=== PATIENT | male | born 1990 | race Two or more races ===

== ENCOUNTER 2024-07-01 09:08 | Emergency (ER) | payer OTHER ==
[~2024-07-01] VITALS: Ht 175.3 cm; Wt 100.7 kg
[2024-07-01] MEDS: cloNIDine HCL 0.1 MG TAB PO ONE (10:12)
--- NOTE | 2024-07-01 10:17 | ED.PDOC ---
Eye-HPI Chief Complaint: Sore Throat Time Seen by MD: 09:24 Reviewed Notes: Nurses Notes, Medications, Allergies Allergies: Coded Allergies: NO KNOWN ALLERGIES (Unverified , 07/01/24) Information Source: Patient Mode of Arrival: Ambulatory X-Ray, Labs, Meds, VS Vital Signs Date Time Temp Pulse Resp B/P (MAP) Pulse Ox O2 Delivery O2 Flow Rate FiO2 07/01/24 11:27 20 Room Air* 0 21 07/01/24 11:27 100.1 98 14 139/95 (110) 98 100.1 07/01/24 11:26 139/95 07/01/24 10:13 91 20 100 Room Air 07/01/24 10:13 98.0 91 20 160/106 (124) 100 98.0 07/01/24 10:12 160/106 07/01/24 09:25 98.5 116 16 183/102 (129) 99 Current Medications Medications (Trade) Dose Ordered Sig/Isabela Route Start Time Stop Time Status Last Admin Clonidine HCl (Catapres Tablet) 0.1 mg ONCE ONCE PO 07/01/24 09:30 07/01/24 09:31 DC 07/01/24 10:12 Ceftriaxone Sodium 50 ml @ 100 mls/hr ONCE ONCE IV 07/01/24 11:15 07/01/24 11:44 DC 07/01/24 11:23 Sodium Chloride 500 ml @ 500 mls/hr Q1H ONCE IV 07/01/24 11:15 07/01/24 12:14 07/01/24 11:22 SINCERE SANTANA NP Jul 01, 2024 10:17
[2024-07-01] MEDS: SODIUM CHLORIDE 0.9% 500 ML IV ONE (11:22)
[2024-07-01] MEDS: cefTRIAXone 1GM/50ML D5W 50 ML IV ONE (11:23)
[2024-07-01 11:27] VITALS: RESP 20
--- NOTE | 2024-07-01 11:57 | ED.PDOC ---
History of Present Illness HPI Comments 34 y/o M, with a Hx of obesity and EtOH and marijuana use, presents with c/o throat swelling and pain, with associated shortness of breath, for the past 6 days, today. Patient endorses on symptoms worsening sine initial, unprovoked onset. He denies having any additional relevant or pertinent Hx and other ass ociated symptoms, such as fever, chills, or congestion. Chief Complaint: Sore Throat Time Seen by MD: 10:45 Reviewed Notes: Nurses Notes, Medications, Allergies Allergies: Coded Allergies: NO KNOWN ALLERGIES (Unverified , 07/01/24) Home Meds Active Scripts Methylprednisolone (Medrol Dosepak) 4 Mg Jay, 4 MG PO UD, #21 TAB UAD Prov:SARIKA VILLA MD 07/01/24 Cephalexin (KEFLEX CAPSULE) 250 Mg Cp, 1 CAP PO QID, #40 CAP Prov:SARIKA VILLA MD 07/01/24 Information Source: Patient Mode of Arrival: Ambulatory Severity: Moderate Timing: Days Duration: Since onset Prehospital treatment: None Past Medical History Past Medical History (Other): obesity Surgical History: Denies all surgeries Family History Family History: Unknown Social History Smoker: Non-Smoker Alcohol: Denies ETOH Use Drugs: Denies Drug Use Lives In: Home Constitutional: reports: sweats EENTM: reports: throat pain, throat swelling; denies: blurred vision, double vision, ear bleeding, ear discharge, ear drainage, ear pain, ear ringing, eye pain, eye redness, hearing loss, mouth pain, mouth swelling, nasal discharge, nose bleeding, nose congestion, nose pain, photophobia, tearing, voice changes, others Respiratory: denies: cough, hemoptysis, orthopnea, SOB at rest, shortness of breath, SOB with excertion, stridor, wheezing, others Cardiovascular: denies: chest pain, dizzy spells, diaphoresis, Dyspnea on exertion, edema, irregular heart beat, left arm pain, lightheadedness, palpitations, PND, syncope, others Gastrointestinal: denies: abdomen distended, abdominal pain, blood streaked bowels, constipated, diarrhea, dysphagia, difficulty swallowing, hematemesis, melena, nausea, poor appetite, poor fluid intake, rectal bleeding, rectal pain, vomiting, others Genitourinary: denies: burning, dysuria, flank pain, frequency, hematuria, incontinence, penile discharge, penile sore, pain, testicle pain, testicle swelling, urgency, others Neurological: denies: dizziness, fainting, headache, left sided numbness, left sided weakness, numbness, paresthesia, pre-existing deficit, right sided numbness, right sided weakness, seizure, speech problems, tingling, tremors, weakness, others Musculoskeletal: denies: back pain, gout, joint pain, joint swelling, muscle pain, muscle stiffness, neck pain, others Integumetry: denies: bruises, change in color, change in hair/nails, dryness, laceration, lesions, lumps, rash, wounds, others Allergic/Immunocompromised: denies: Difficulty Healing, Frequent Infections, Hives, Itching, others Hematologic/Lymphatic: denies: anemia, blood clots, easy bleeding, easy bruising, swollen glands, others Endocrine: denies: excessive hunger, excessive sweating, excessive thirst, excessive urination, flushing, intolerance to cold, intolerance to heat, unexplained weight gain, unexplained weight loss, others Psychiatric: denies: anxiety, bipolar disorder, depression, hopeless, panic disorder, schizophrenia, sleepless, suicidal, others Physical Exam General Appearance: No Apparent Distress HEENT: Normal ENT Inspection, Pharyngeal Erythema, TMs Normal, Tonsillar Exudate Neck: Full Range of Motion, Non-Tender, Normal, Normal Inspection Respiratory: Chest Non-Tender, Lungs Clear, No Accessory Muscle Use, No Respiratory Distress, Normal Breath Sounds Cardiovascular: No Edema, No JVD, No Murmur, No Gallop, Normal Peripheral Pulses, Regular Rate/Rhythm Breast Exam: Deferred Gastrointestinal: No Organomegaly, Non Tender, No Pulsatile Mass, Normal Bowel Sounds, Soft Genitalia: Deferred Pelvic: Deferred Rectal: Deferred Extremities: No calf tenderness, Normal capillary refill, Normal inspection, Normal range of motion, Non-tender, No pedal edema Musculoskeletal : Apperance: Normal Neurologic: Alert, engineer soils II-XII nml as Tested, No Motor Deficits, Normal Affect, Normal Mood, No Sensory Deficits Cerebellar Function: Normal Reflexes: Normal Skin: Dry, Normal Color, Warm Lymphatic: No Adenopathy Was a procedure done? Was a procedure done?: No Differential Dx Considerations may include: viral syndrome, pharyngitis, tonsillitis, strep throat X-Ray, Labs, Meds, VS Vital Signs Date Time Temp Pulse Resp B/P (MAP) Pulse Ox O2 Delivery O2 Flow Rate FiO2 07/01/24 14:42 98.7 100 16 164/97 (119) 97 98.7 07/01/24 11:27 20 Room Air* 0 21 07/01/24 11:27 100.1 98 14 139/95 (110) 98 100.1 07/01/24 11:26 139/95 07/01/24 10:13 91 20 100 Room Air 07/01/24 10:13 98.0 91 20 160/106 (124) 100 98.0 07/01/24 10:12 160/106 07/01/24 09:25 98.5 116 16 183/102 (129) 99 Lab Test 07/01/24 11:56 Range/Units White Blood Count 21.9 H 4.4-10.8 10^3/uL Red Blood Count 4.86 4.5-5.90 10^6/uL Hemoglobin 15.3 13.5-17.5 g/dL Hematocrit 44.4 41.0-53.0 % Mean Corpuscular Volume 91.4 80.0-100.0 fL Mean Corpuscular Hemoglobin 31.4 28.0-32.0 pg Mean Corpuscular Hemoglobin Concent 34.4 32.0-36.0 g/dL Red Cell Distribution Width 12.6 11.8-14.3 % Platelet Count 298 140-450 10^3/uL Mean Platelet Volume 8.1 6.9-10.8 fL Neutrophils (%) (Auto) 84.0 H 37.0-80.0 % Lymphocytes (%) (Auto) 7.3 L 10.0-50.0 % Monocytes (%) (Auto) 8.5 0.0-12.0 % Eosinophils (%) (Auto) 0.1 0.0-7.0 % Basophils (%) (Auto) 0.1 0.0-2.0 % Neutrophils # (Auto) 18.4 H 1.6-8.6 10 ^3/uL Lymphocytes # (Auto) 1.6 0.4-5.4 10 ^3/uL Monocytes # (Auto) 1.9 H 0-1.3 10 ^3/uL Eosinophils # (Auto) 0 0-0.8 10 ^3/uL Basophils # (Auto) 0 0-0.2 10 ^3/uL Nucleated Red Blood Cells 0.0 % Sodium Level 140 136-145 mmol/L Potassium Level 3.4 L 3.5-5.1 mmol/L Chloride Level 105 98-107 mmol/L Carbon Dioxide Level 26 20-31 mmol/L Anion Gap 9 5-15 Blood Urea Nitrogen 14 9-23 mg/dL Creatinine 0.98 0.700-1.30 mg/dL Glomerular Filtration Rate Calc 104 >90 mL/min BUN/Creatinine Ratio 14.3 10.0-20.0 Serum Glucose 112 H 74-106 mg/dL Calcium Level 9.9 8.7-10.4 mg/dL Current Medications Medications (Trade) Dose Ordered Sig/Isabela Route Start Time Stop Time Status Last Admin Clonidine HCl (Catapres Tablet) 0.1 mg ONCE ONCE PO 07/01/24 09:30 07/01/24 09:31 DC 07/01/24 10:12 Ceftriaxone Sodium 50 ml @ 100 mls/hr ONCE ONCE IV 07/01/24 11:15 07/01/24 11:44 DC 07/01/24 11:23 Sodium Chloride 500 ml @ 500 mls/hr Q1H ONCE IV 07/01/24 11:15 07/01/24 12:14 DC 07/01/24 11:22 The patient's CBC shows an elevated white blood cell count of 21.9 The rest of the CBC is within normal limits The patient was given clonidine 0.1 mg by mouth for the elevated blood pressure The patient was given Rocephin 1 g IV push The patient was also given normal saline as a bolus At this time, the patient was being discharged on Keflex and will return to the emergency department's the condition worsens We have discussed the findings with the patient and they understand the management. Time of 1ST Reevaluation: 11:15 Reevaluation 1ST: Unchanged Patient Education/Counseling: Diagnosis, Treatment, Prognosis, Need For Follow Up Family Education/Counseling: No Family Present Departure 1 Departure Time of Disposition: 14:55 Impression: Primary Impression: Acute tonsillitis Qualified Codes: J03.90 - Acute tonsillitis, unspecified Disposition: 01 HOME / SELF CARE / HOMELESS Condition: Fair e-Prescriptions Methylprednisolone (Medrol Dosepak) 4 Mg Jay 4 MG PO UD, #21 TAB UAD Prov: SARIKA VILLA MD 07/01/24 Cephalexin (KEFLEX CAPSULE) 250 Mg Cp 1 CAP PO QID, #40 CAP Prov: SARIKA VILLA MD 07/01/24 Discharged With: Self Critical Care Note Critical Care Time?: No Stability Stability form required: No Heart Score Heart Score: Heart Score Response (Comments) Value History N/A 0 EKG N/A 0 Age N/A 0 Risk Factors N/A 0 Troponin N/A 0 Total 0 I personally scribed for SARIKA VILLA MD ([email or web address]) on 07/01/24 at 11:57. Electronically submitted by Jonathan Fonseca ([email or web address]). SARIKA VILLA MD Jul 01, 2024 11:57
[2024-07-01 12:33] LABS: Chloride 105 mmol/L (98-107); Sodium 140 mmol/L (136-145)
[2024-07-01 12:34] LABS: Anion Gap 9 (5-15); Calcium 9.9 mg/dL (8.7-10.4); Carbon Dioxide 26 mmol/L (20-31)
[2024-07-01 12:39] LABS: BUN/Creatinine Ratio 14.3 (10.0-20.0); Blood Urea Nitrogen 14 mg/dL (9-23); Glucose 112 mg/dL (74-106); Potassium 3.4 mmol/L (3.5-5.1)
[2024-07-01 13:55] LABS: Basophils # (auto) 0 10 ^3/uL (0-0.2); Basophils % (auto) 0.1 % (0.0-2.0); Eosinophils # (auto) 0 10 ^3/uL (0-0.8); Eosinophils % (auto) 0.1 % (0.0-7.0); Hematocrit 44.4 % (41.0-53.0); Hemoglobin 15.3 g/dL (13.5-17.5); Lymphocytes # (auto) 1.6 10 ^3/uL (0.4-5.4); Lymphocytes % (auto) 7.3 % (10.0-50.0); Mean Corpuscular Hemoglobin 31.4 pg (28.0-32.0); Mean Corpuscular Hgb Conc. 34.4 g/dL (32.0-36.0); Mean Corpuscular Volume 91.4 fL (80.0-100.0); Monocytes # (auto) 1.9 10 ^3/uL (0-1.3); Monocytes % (auto) 8.5 % (0.0-12.0); Neutrophils # (auto) 18.4 10 ^3/uL (1.6-8.6); Platelet Count (auto) 298 10^3/uL (140-450); Red Blood Cells 4.86 10^6/uL (4.5-5.90); Red Cell Distribution Width 12.6 % (11.8-14.3); White Blood Cell 21.9 10^3/uL (4.4-10.8)
[2024-07-01 14:42] VITALS: BP 164/97; PULSE 100; RESP 16; TEMP 98.7; O2SAT 97
[2024-07-01] MEDS ORDERED: CEPH250C PO (14:52)
[2024-07-01] MEDS ORDERED: METH4PAK PO (14:52)
== END 2024-07-01 15:07 | disposition home or self-care (01) ==
LOC: ER 09:08
DX: J03.90 Acute tonsillitis, unspecified (principal)
CPT/HCPCS: 36415; 80048; 85025; 96365; 99284; J0696; J7030